=== PATIENT | female | born 1945 | race Caucasian/White ===

== ENCOUNTER → 2018-01-30 | Outpatient (CLI) | payer MEDICARE, OTHER ==
[~2018-01-30] MED LIST: ACYCLOVIR 800800 MG PO; ASPIRIN81 M2 PO; ATIVAN1 MG PO; BACTRIM DS TAB1 EACH PO; CIPRO500 MG PO; FLEXERIL PO; HYDROCODONE-AP1 EAC6 PO; HYZAAR; HYZAAR 50-12.51 EACH PO; KEFLEX500 MG PO; LAMISIL250 MG PO; LEXAPRO; LEXAPRO20 MG PO; LOSARTAN-HCTZ1 EAC2 PO; MELATONIN PO; MOBIC15 MG PO; NORCO 5-325 TA1 EACH PO; PREMARIN; PREMARIN0.625 MG PO; [UNRECOGNIZED DRUG - OTHER] PO; [UNRECOGNIZED DRUG - OTHER] PO; [UNRECOGNIZED DRUG - OTHER] PO; [UNRECOGNIZED DRUG - OTHER] PO
== END ==
LOC: M.RAD 01-24 14:30
DX: M85.80 Other specified disorders of bone density and structure, unspecified site (principal)

== ENCOUNTER → 2018-05-30 | Outpatient (CLI) | payer MEDICARE, OTHER | LOC: M.RAD 14:05 | DX: Z12.31 Encounter for screening mammogram for malignant neoplasm of breast (principal); F32.9 Major depressive disorder, single episode, unspecified; R03.0 Elevated blood-pressure reading, without diagnosis of hypertension ==

== ENCOUNTER → 2018-12-14 | Outpatient (CLI) | payer MEDICARE, OTHER | LOC: M.RAD 16:05 | DX: M25.531 Pain in right wrist (principal); M79.89 Other specified soft tissue disorders ==

== ENCOUNTER 2018-12-18 22:03 | Inpatient (IN) | payer MEDICARE, OTHER ==
[~2018-12-18] VITALS: Ht 157.5 cm; Wt 72.6 kg
[2018-12-18 22:06] VITALS: BP 219/77
[2018-12-18 22:44] LABS: ABSOLUTE EOSINOPHILS 0.1 thou/uL (0.0-0.7); ABSOLUTE LYMPHOCYTES 1.7 thou/uL (0.8-5.3); ABSOLUTE MONOCYTES 0.4 thou/uL (0.0-1.2); ABSOLUTE NEUTROPHILS 6.4 thou/uL (1.6-8.1); BASOPHILS 0.4 %; EOSINOPHILS 0.6 %; HEMATOCRIT 34.5 % (37.0-47.0); HEMOGLOBIN 11.7 gm/dL (12.0-15.0); LYMPHOCYTES 19.8 %; MCH 30.6 pg (26.0-34.0); MCHC 33.8 g/dL (28.0-37.0); MCV 90.7 fL (80.0-100.0); MONOCYTES 4.7 %; MPV 7.6 fl. (7.2-11.1); NUCLEATED RBCS 0 /100WBC; PLATELET COUNT* 282 thou/uL (150-400); POLYS 74.5 %; RDW-CV 13.4 % (10.5-14.5); WBC 8.6 thou/uL (4.0-11.0)
[2018-12-18 22:53] LABS: APTT 28.4 Seconds (25.0-31.3); PROTIME 10.4 Seconds (9.20-11.50)
[2018-12-18 23:00] LABS: ALBUMIN 3.4 g/dL (3.4-5.0); ALKALINE PHOSPHATASE 119 U/L (46-116); ANION GAP 9 mmol/L (7-16); BUN 25 mg/dL (7-18); CALCIUM 9.2 mg/dL (8.5-10.1); CHLORIDE 105 mmol/L (98-107); CO2 30 mmol/L (21-32); CREATININE 1.1 mg/dL (0.6-1.3); GLUCOSE 144 mg/dL (70-99); POTASSIUM 4.8 mmol/L (3.5-5.1); SGOT 48 U/L (15-37); SGPT 57 U/L (30-65); SODIUM 144 mmol/L (136-145); TOTAL BILIRUBIN 0.3 mg/dL (<0.1-1.0); TOTAL PROTEIN 6.8 g/dL (6.4-8.2); TROPONIN-I LEVEL <0.06 ng/mL (<0.06)
[2018-12-19] VITALS (7 sets, daily range): BP systolic 127–234; BP diastolic 43–90
--- NOTE | 2018-12-19 02:27 | NUR ---
PT ADMITTED TO ROOM 210 AT 0140. PT ABLE STAND INDEPENDENTLY AND AMBULATE TO BATHROOM THEN TO BED. PT'S GATE STEADY AND PURPOSEFULL. PT REPORTS STILL HAVING HEADACHE RATE AT 8 ON PAIN SCALE. PT'S BLOOD PREWSSURE 234/90. SPOKE WITH DR MARTINEZ AND RECIEVED ORDERS. WAITING FOR MEDS TO BE AVAILABLE IN [place]. CALL LIGHT IN REACH, PT DEMONSTRATES PROPER USE.
--- NOTE | 2018-12-19 08:47 | NUR ---
ASSUMED CARE OF PT AT 0730. PT RESTING IN BED. PT A&0X4, DENIES ANY PAIN OR SHORTNESS OF BREATH AT THIS TIME. PT TRACING SR ON THE DEVELOPMENT TRAINER. VSS. PT STATES SHE FEELS BETTER TODAY AND DENIES ANY HEADACHE AT THIS TIME. PT ON RA SAT UPPER 90'S. PT UP AD POLINA IN ROOM. PT GOAL FOR TODAY IS NEURO CONSULT, MAINTAIN SBP< 150 AND PAIN MGMT, AM ASSESSMENT CHARTED. MEDICATIONS PER OCT. PT REPOSITIONS SELF. HOURLY ROUNDING OBSERVED. BED IN LOW POSITION. CALL LIGHT WITHIN REACH. WILL CONTINUE PLAN OF CARE.
[2018-12-19 10:24] LABS: MAGNESIUM 1.9 mg/dL (1.8-2.4); TROPONIN-I LEVEL 0.07 ng/mL (<0.06)
[2018-12-19] MEDS ORDERED: CHLORTHALIDONE25 MG PO (11:16)
[2018-12-19] MEDS ORDERED: BENAZEPRIL HCL40 MG PO (11:16)
[2018-12-19 12:43] LABS: URINE BILIRUBIN NEGATIVE (Negative); URINE BLOOD NEGATIVE (Negative); URINE CLARITY CLEAR; URINE COLOR YELLOW; URINE GLUCOSE-RANDOM NEGATIVE (Negative); URINE KETONES NEGATIVE (Negative); URINE LEUKOCYTES-REFLEX NEGATIVE (Negative); URINE NITRITE-REFLEX POSITIVE (Negative); URINE PROTEIN NEGATIVE (Negative); URINE UROBILINOGEN 0.2 E.U./dl (0.2-1.0)
[2018-12-19 12:51] LABS: BACTERIA-REFLEX >30 Many /HPF (None Seen); CASTS None Seen /LPF (None Seen); CRYSTALS None Seen /LPF (None Seen); MUCUS None Seen strn/LPF (None Seen); SQUAMOUS 4-10 Moderate /LPF (0-3); URINE RBC 0-2 Rare /HPF (0-2); URINE WBC-REFLEX 6-15 Few /HPF (0-5)
--- NOTE | 2018-12-19 13:27 | EKG ---
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 : 1945 Requested By: Hyacinth Funez Order Number: [id number] MD: Talha Stanton Measurements Intervals [place] Rate: 57 P: 35 WI: 164 QRS: -1 QRSD: 93 T: 32 QT: 426 QTc: 415 Interpretive Statements Sinus rhythm Probable left atrial enlargement Abnormal R-wave progression, early transition Baseline wander in lead(s) V1 Compared to ECG 09/13/2016 03:47:37 No significant changes Electronically Signed On 12-19-2018 13:27:32 CDT by Talha Stanton [email or web address] <ELECTRONICALLY SIGNED> By: Talha Stanton MD, FAC 12/19/18 1327 2219 2219 Talha Stanton MD, [facility] /EPI
--- NOTE | 2018-12-19 14:59 | NUR ---
Per , Pt will dc later today. No needs
--- NOTE | 2018-12-19 15:05 | NUR ---
Pt is A&O. Resides at home alone. Independent and active, no DME. No hx of HH or SNF. Goal is home at dc, no needs anticipated.
[2018-12-19 15:38] LABS: AMP/METHAMP Negative (Negative); BARBITURATES Negative (Negative); BENZODIAZEPINES Negative (Negative); COCAINE Negative (Negative); METHADONE Negative (Negative); OPIATES POSITIVE (Negative); PCP Negative (Negative); THC Negative (Negative)
--- NOTE | 2018-12-19 17:54 | NUR ---
NO ACUTE CHANGES THROUGHOUT SHIFT. REFER TO CHARTING. NEURO CONSULT CANCELED PER DR REEVES. SERIAL TROPONINS OBTAINED. REFER TO RESULTS. REPEAT TROP FOR THE AM. PT DENIES ANY CHEST PAIN OR SHORTNESS OF BREATH. BLOOD PRESSURE STABLE. PT CONTINUES TO TRACE SR ON THE TRADE RECRUITER. ON RA SAT UPPER 90'S. PT UP AD POLINA IN ROOM. MEDICATIONS PER OCT. PT REPOSITIONS SELF. HOURLY ROUNDING OBSERVED. BED IN LOW POSITION. CALL LIGHT WITHIN REACH. WILL CONTINUE PLAN OF CARE.
[2018-12-20 00:10] VITALS: BP 181/71
[2018-12-20 04:05] VITALS: BP 150/53
[2018-12-20 06:04] LABS: POTASSIUM 3.5 mmol/L (3.5-5.1); TROPONIN-I LEVEL 0.09 ng/mL (<0.06)
--- NOTE | 2018-12-20 07:24 | NUR ---
VITALS WNL. SEE MAR. SEE CHARTING. HOURLY ROUNDING FOR SAFETY.
[2018-12-20 08:27] VITALS: BP 186/77
--- NOTE | 2018-12-20 09:47 | EKG ---
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
[2018-12-20 11:41] VITALS: BP 162/67
[2018-12-20 15:38] VITALS: BP 161/62
--- NOTE | 2018-12-20 16:20 | NUR ---
PT PROGRESSING TOWARDS GOALS THIS SHIFT. PT HAD EPISODES OF ELEVATED BLOOD PRESSURE AND HEADACHE THIS AM. ON PREVIOUS SHIFT, PT HAD SOME NAUSEA AND VOMITTING. PT GIVEN IV ZOFRAN THIS AM AND HAS TOLERATED DIET AND MEDS TODAY. STARTED NEW HTN MED NORVASC TODAY. PT HAS SOME DIAGNOSTIC TESTING PLANNED FOR TOMORROW. WILL BE NPO AFTER MIDNIGHT TONIGHT. ANTICIPATE DC HOME TOMORROW POST TESTING. NO OTHER CONCERNS AT THIS TIME. CLWR. WCTM.
--- NOTE | 2018-12-20 16:30 | 2DMMODE ---
[place] [address] 2 D/M-MODE ECHOCARDIOGRAM Name: ASTON VELAZQUEZ Room: [address] IN [facility]#: [id number] Admission: 12/19/18 Attend Phys: Harshad Pan Discharge: Date of : 49 Date of Service: 12/20/18 1630 Report #: [id number] THIS REPORT FOR: //name// APPROVED REPORT Study performed: 12/20/2018 15:27:14 EXAM: Comprehensive 2D, Doppler, and color-flow Echocardiogram Patient Location: In-Patient Room #: 210 Status: routine BSA: 1.74 HR: 65 bpm BP: 161/62 mmHg Rhythm: NSR Other Information Study Quality: Good Indications Elevated Troponin Hypertension/HDD 2D Dimensions IVSd: 12.07 (7-11mm) LVOT Diam: 16.79 (18-24mm) LVDd: 40.28 mm PWd: 13.40 (7-11mm) Ascending Ao: 26.27 (22-36mm) LVDs: 21.71 (25-40mm) Aortic Root: 24.91 mm Volumes Left Atrial Volume (Systole) LA ESV Index: 22.40 mL/m2 Aortic Valve AoV Peak Ryan.: 1.74 m/s AO Peak Gr.: 12.05 mmHg LVOT Max P.92 mmHg AO Mean Gr.: 6.61 mmHg LVOT Mean P.21 mmHg LVOT Max V: 1.22 m/s AO V2 VTI: 35.75 cm LVOT Mean V: 0.84 m/s HARDEEP (VTI): 1.72 cm2 LVOT V1 VTI: 27.82 cm AI [place]: 1.66 m/s2 AI PHT: 638.51 [place] [address] 2 D/M-MODE ECHOCARDIOGRAM Name: ASTON VELAZQUEZ Room: [address] [place] .R.#: [id number] Admission: 12/19/18 Attend Phys: Harshad Pan Discharge: Date of : 49 Date of Service: 12/20/18 1630 Report #: [id number] E/A Ratio: 1.13 MV Decel. Time: 196.83 ms MV E Max Ryan.: 0.96 m/s MV PHT: 57.08 ms MVA (PHT): 3.85 cm2 TDI E/Lateral E': 8.73 E/Medial E': 9.60 Medial E' Ryan.: 0.10 m/s Lateral E' Ryan.: 0.11 m/s Pulmonary Valve PV Peak Ryan.: 1.20 m/s PV Peak Gr.: 5.80 mmHg Left Ventricle The left ventricle is normal size. There is normal LV segmental wall motion. Mild concentric left ventricular hypertrophy. Left ventricular systolic function is normal. LVEF is 65-70%. Transmitral Doppler flow pattern suggests pseudonormalization. Right Ventricle The right ventricle is normal size. The right ventricular systolic function is normal. Atria The left atrium size is normal. The right atrium size is normal. Aortic Valve Mild aortic valve sclerosis. Mild aortic regurgitation. Mild aortic stenosis. Mitral Valve The mitral valve is normal in structure. Mild mitral regurgitation. No evidence of mitral valve stenosis. Tricuspid Valve The tricuspid valve is normal in structure. Unable to assess PA pressure. Trace tricuspid regurgitation. Pulmonic Valve The pulmonary valve is normal in structure. There is no pulmonic valvular regurgitation. Great Vessels The aortic root is normal in size. IVC [place] [address] 2 D/M-MODE ECHOCARDIOGRAM Name: ASTON VELAZQUEZ Room: [address] IN [facility]#: [id number] Admission: 12/19/18 Attend Phys: Harshad Pan Discharge: Date of : 49 Date of Service: 12/20/18 1630 Report #: [id number] collapses >50% with inspiration. Pericardium There is no pericardial effusion. <Conclusion> The left ventricle is normal size. Mild concentric left ventricular hypertrophy. Left ventricular systolic function is normal. LVEF is 65-70%. Transmitral Doppler flow pattern suggests pseudonormalization. Mild aortic valve sclerosis. Mild aortic regurgitation. Mild aortic stenosis. Mild mitral regurgitation. <ELECTRONICALLY SIGNED> By: Dylan Alvarez MD, FACC 12/20/18 1630 1630 1630 Dylan Alvarez MD, FACC /INF
[2018-12-20 19:30] VITALS: BP 167/67
[2018-12-21 00:32] VITALS: BP 213/79
[2018-12-21 04:46] VITALS: BP 140/51
--- NOTE | 2018-12-21 06:03 | NUR ---
PT BP ELEVATED MEDICATIONS GIVEN BP STABLE. SEE MAR. SEE CHARTING. HOURLY ROUNDING FOR SAFETY.
[2018-12-21 08:00] VITALS: BP 159/65
[2018-12-21] MEDS ORDERED: CHLORTHALIDONE25 MG PO (09:11)
[2018-12-21] MEDS ORDERED: NORVASC5 MG PO (09:11)
[2018-12-21] MEDS ORDERED: LISINOPRIL40 MG PO (09:11)
[2018-12-21] MEDS ORDERED: CEFDINIR300 MG PO (09:12)
[2018-12-21] MEDS ORDERED: TOPAMAX50 MG PO (09:12)
[2018-12-21 09:14] LABS: CALCIUM 9.1 mg/dL (8.5-10.1); MAGNESIUM 1.8 mg/dL (1.8-2.4); POTASSIUM 3.6 mmol/L (3.5-5.1)
--- NOTE | 2018-12-21 09:45 | NUR ---
8109 ASSUMED CARE OF PATIENT. PLEASE SEE DOCUMENTED ASSESSMENT. PT IS NPO FOR MUCLEAR STRESS TEST.
--- NOTE | 2018-12-21 09:45 | NUR ---
5162 DR KLINE TO SEE PATIENT AND ORDERS NOTED.
--- NOTE | 2018-12-21 12:34 | NUR ---
PATIENT REMAINS OFF OF UNIT FOR NUCLEAR STRESS TEST AND RENAL ULTRASOUND
[2018-12-21 14:00] VITALS: BP 159/70
--- NOTE | 2018-12-21 14:00 | NUR ---
1400 back from nuclear stress test and ultrasound. DIET RESUMED
[2018-12-21 14:35] VITALS: BP 159/70
[2018-12-21 15:59] VITALS: BP 143/53
--- NOTE | 2018-12-21 17:31 | NUR ---
AWAITING POSSIBLE DISCHARGE SECONDARY TO RESULTS FROM NUCLEAR STRESS TEST. BLOOD PRESSURE BETTER CONTROLLED TODAY. DISCHARGE EDUCATION IS COMPLETE.
--- NOTE | 2018-12-21 18:17 | CARDNUC ---
[place] [address] CARDIAC NUCLEAR IMAGING REPORT Name: ASTON VELAZQUEZ Room: [address] IN [facility]#: [id number] Admission: 12/19/18 Attend Phys: Harshad Pan Discharge: Date of : 49 Date of Service: 12/21/18 181 Report #: [id number] THIS REPORT FOR: //name// APPROVED REPORT Imaging Protocol: Rest Tc-99m/Stress Tc-99m 1 day Study performed: 12/20/2018 14:35:00 Indication: Uncontrolled HTN Patient Location: In-Patient Room #: 210 Stress Tech: Viviane Wagoner Stress Nurse: Valerie Kirkpatrick RN NM Tech:RENITA Cintron Ht: 5 ft 2 in Wt: 160 lbs BSA: 1.74 m2 HR: 81 bpm BP: 201/82 mmHg BMI: 29.26 Rhythm: NSR Medical History Medications: Amlodipine, Aspirin, Lisinopril Allergies: No known drug allergies Cardiac Risk Factors: Age, HTN Resting Data Rest SPECT myocardial perfusion imaging was performed in supine position 30 minutes following the intravenous injection of 10.0 mCi of Tc-99m Sestamibi. Time of rest injection: 1010 Date: 12/21/2018 The images were gated to evaluate regional wall motion and calculate left ventricular ejection fraction. Administration Route: IV Administration Site: Right Arm Pharmacologic Stress Pharmacologic stress test was performed by injecting Regadenoson 0.4 mg IV push over 10-15 seconds immediately followed by the intravenous injection of 30.2 mCi of Tc-99m Sestamibi. Time of stress injection: 1155 Date: 12/21/2018 Administration Route: IV Administration Site: Right Arm Gated Stress SPECT was performed 40 minutes after stress injection. The images were gated to evaluate regional [place] [address] CARDIAC NUCLEAR IMAGING REPORT Name: ASTON VELAZQUEZ Room: [address] IN [facility]#: [id number] Admission: 12/19/18 Attend Phys: Harshad Pan Discharge: Date of : 49 Date of Service: 12/21/18 1816 Report #: [id number] left ventricular ejection fraction. Prone imaging was performed. Stress Test Details Stress Test: Pharmacologic stress testing performed using 0.4 mg of regadenoson per 5 mL given IV over 10 seconds. Reason for pharmacologic stress test: physical limitation. HR Max Heart Rate (APMHR): 149 bpm Resting HR: 71 bpm Target HR (85% APMHR): 126 bpm Max HR Achieved: 110 bpm % of APMHR: 73 Recovery HR: 83 bpm HR response to stress: Normal HR response to stress BP Resting BP: 201/82 mmHg Max BP: 168/59 mmHg Recovery BP: 191/79 mmHg BP response to stress: Normal blood pressure response to stress. ECG Resting ECG: Sinus Rhythm Stress ECG: Sinus Tachycardia ST Change: None Arrhythmia: None Recovery ECG: Sinus Rhythm Recovery ST Change: None Recovery Arrhythmia: None Clinical Reason for Termination: Completed protocol Stress Symptoms: None The patient tolerated Lexiscan infusion without significant symptoms. Stress ECG Conclusion The baseline 12-lead EKG shows sinus rhythm with no significant ST or T wave abnormalities. EKGs obtained during and post Lexiscan infusion show sinus rhythm and sinus tachycardia with no significant ST or T wave changes when compared to baseline. There were no stress-induced arrhythmias. Study Quality Study: Good Artifact: [place] [address] CARDIAC NUCLEAR IMAGING REPORT Name: ASTON VELAZQUEZ Room: [address]#: [id number] Admission: 12/19/18 Attend Phys: Harshad Pan Discharge: Date of : 49 Date of Service: 12/21/18 1816 Report #: [id number] Study Data At rest, the left ventricular ejection fraction was 84%.. Post stress, the left ventricular ejection was 83%.. TID = 0.98. Perfusion Normal left ventricular perfusion. Wall Motion Normal left ventricular wall motion. Nuclear Conclusion ECG Findings: negative for ischemia Clinical Findings: negative for ischemia Nuclear Findings: negative for ischemia Exercise Capacity: not assessed Left Ventricular Function: normal Risk Study: low Myocardial perfusion images show no defect to suggest infarct or ischemia. Left ventricular systolic function appears normal on gated studies. This is a low risk study. <Conclusion> The baseline 12-lead EKG shows sinus rhythm with no significant ST or T wave abnormalities. EKGs obtained during and post Lexiscan infusion show sinus rhythm and sinus tachycardia with no significant ST or T wave changes when compared to baseline. There were no stress-induced arrhythmias. <ELECTRONICALLY SIGNED> By: Dylan Alvarez MD, FACC 12/21/181815 15 15 Dylan Alvarez MD, FACC /INF
--- NOTE | 2018-12-21 18:21 | NUR ---
NUCLEAR MEDICINE RESULT NOTED. AND PATIENT CAN BE DISCHARGED
--- NOTE | 2018-12-21 18:41 | NUR ---
PATIENT IS CALLING HER DAUGHTER FOR RIDE HOME. IV DISCONTINUED AND TELEMETRY PACK REMOVED
== END 2018-12-21 18:59 | disposition home or self-care (01) | DRG 281 ==
LOC: M.ERS 22:03 → M.TBA-ER 12-19 00:10 → M.2W 12-19 00:10
PROVIDERS: Family Medicine; Internal Medicine; Nurse Practitioner Family; ADMIT Family Medicine
DX: I21.4 Non-ST elevation (NSTEMI) myocardial infarction (principal); N39.0 Urinary tract infection, site not specified; I16.0 Hypertensive urgency; I12.9 Hypertensive chronic kidney disease with stage 1 through stage 4 chronic kidney disease, or unspecified chronic kidney disease; N18.2 Chronic kidney disease, stage 2 (mild); F32.9 Major depressive disorder, single episode, unspecified; K58.0 Irritable bowel syndrome with diarrhea; G43.909 Migraine, unspecified, not intractable, without status migrainosus; Z86.12 Personal history of poliomyelitis; Z90.710 Acquired absence of both cervix and uterus; Z90.49 Acquired absence of other specified parts of digestive tract; Z82.49 Family history of ischemic heart disease and other diseases of the circulatory system; Z83.3 Family history of diabetes mellitus; Z80.1 Family history of malignant neoplasm of trachea, bronchus and lung; Z79.82 Long term (current) use of aspirin; Z79.899 Other long term (current) drug therapy

== ENCOUNTER 2019-08-24 14:50 | Emergency (ER) | payer MEDICARE, OTHER ==
[~2019-08-24] VITALS: Ht 157.5 cm; Wt 68.0 kg
[~2019-08-24 14:50] MED LIST changes: +BENAZEPRIL HCL40 MG PO; +CEFDINIR300 MG PO; +CHLORTHALIDONE25 MG PO; +LISINOPRIL40 MG PO; +NORVASC5 MG PO; +TOPAMAX50 MG PO
[2019-08-24] MEDS ORDERED: PROTONIX 20 MG20 MG PO (15:04)
[2019-08-24] MEDS ORDERED: DOXYCYCLINE 10100 MG PO ×2 (15:54)
[2019-08-24] MEDS ORDERED: CENTANY30 GM TOP ×2 (15:54)
[2019-08-24 16:00] VITALS: BP 101/71
== END 2019-08-24 16:00 | disposition home or self-care (01) ==
LOC: M.ERS 14:50
DX: S61.011A Laceration without foreign body of right thumb without damage to nail, initial encounter (principal); I10 Essential (primary) hypertension; K58.9 Irritable bowel syndrome, unspecified; Z90.49 Acquired absence of other specified parts of digestive tract; Z90.710 Acquired absence of both cervix and uterus; W26.8XXA Contact with other sharp object(s), not elsewhere classified, initial encounter; Y93.89 Activity, other specified; Y92.89 Other specified places as the place of occurrence of the external cause; Y99.8 Other external cause status

== ENCOUNTER → 2020-09-16 | Outpatient (CLI) | payer MEDICARE, OTHER ==
[~2020-09-16] MED LIST changes: +CENTANY30 GM TOP; +DOXYCYCLINE 10100 MG PO; +PROTONIX 20 MG20 MG PO
== END ==
LOC: M.RAD 09-11 14:00
PROVIDERS: ATTEND Registered Nurse Diabetes Educator
DX: Z12.31 Encounter for screening mammogram for malignant neoplasm of breast (principal)

== ENCOUNTER 2021-02-01 12:58 | Emergency (ER) | payer MEDICARE, OTHER ==
[~2021-02-01] VITALS: Ht 162.6 cm; Wt 64.4 kg
[2021-02-01] MEDS ORDERED: TOPROL XL25 MG PO (13:12)
[2021-02-01 14:09] VITALS: BP 148/80
== END 2021-02-01 14:10 | disposition home or self-care (01) ==
LOC: M.ERS 12:58
DX: S13.4XXA Sprain of ligaments of cervical spine, initial encounter (principal); I10 Essential (primary) hypertension; E11.9 Type 2 diabetes mellitus without complications; Z79.82 Long term (current) use of aspirin; Z79.899 Other long term (current) drug therapy; X58.XXXA Exposure to other specified factors, initial encounter; Y93.89 Activity, other specified; Y92.89 Other specified places as the place of occurrence of the external cause; Y99.9 Unspecified external cause status